=== PATIENT | female | born 1945 | race Caucasian/White ===

== ENCOUNTER 2016-06-25 06:26 | Day surgery (SDC) | payer OTHER ==
[2016-06-20 10:28] VITALS: BMI 27.9
[2016-06-24 10:00] VITALS: Ht 154.9 cm; Wt 75.0 kg
[2016-06-25] VITALS (17 sets, daily range): BP systolic 133–151; BP diastolic 56–69; PULSE 60–64; RESP 11–22
[~2016-06-25] VITALS: Ht 154.9 cm; Wt 75.0 kg
[~2016-06-25 06:26] MED LIST: APR50 PO; ASPI325T4 PO; CALC667T PO; GABA300C16 PO; HYDR-3011 PO; LISI-313 PO; METO-429 PO; PANT40TA4 PO
[2016-06-25] MEDS ORDERED: HYDR100T7 PO (07:37)
[2016-06-25] MEDS ORDERED: NPH SQ (07:38)
[2016-06-25] MEDS ORDERED: LISI40TA9 PO (07:39)
[2016-06-25] MEDS ORDERED: ERGO500037 PO (07:40)
[2016-06-25] MEDS ORDERED: DIPH25CA6 PO (07:41)
[2016-06-25] MEDS ORDERED: INSULIN REGULAR, HUMAN 100 UNIT/1 ML 3ML VIAL SC ONE ×2 (08:16→09:33)
[2016-06-25] MEDS ORDERED: HEPARIN 1000 UNITS/ML 10 ML INJ ONE (08:18)
[2016-06-25] MEDS ORDERED: LIDOCAINE 1% (STERILE-PAK) 30 ML INJ ONE (08:18)
[2016-06-25] MEDS ORDERED: GLUCAGON 1 MG INJ IM PRN (08:30)
[2016-06-25] MEDS ORDERED: GLUCOSE GEL 15 GRAM TUBE BUCCAL PRN (08:30)
[2016-06-25] MEDS ORDERED: GLUCOSE GEL 15 GRAM TUBE PO PRN ×2 (08:30)
[2016-06-25] MEDS ORDERED: DEXTROSE 50% 50 ML SYRINGE IV PRN (08:30)
[2016-06-25] MEDS ORDERED: MIDAZOLAM 1 MG/ML 2 ML INJ IV PRN (11:00)
[2016-06-25] MEDS ORDERED: MEPERIDINE 25 MG INJ IV PRN (11:00)
[2016-06-25] MEDS ORDERED: METOCLOPRAMIDE 10 MG INJ IV PRN (11:00)
[2016-06-25] MEDS ORDERED: MIDAZOLAM 1 MG/ML 2 ML INJ ONE (11:00)
[2016-06-25] MEDS ORDERED: FENTAnyl 50 MCG/ML VIAL ONE (11:00)
[2016-06-25] MEDS ORDERED: PROPOFOL 0 ML ONE (11:00)
[2016-06-25] MEDS ORDERED: ONDANSETRON 4 MG INJ IV PRN (11:00)
[2016-06-25] MEDS ORDERED: FENTAnyl 50 MCG/ML VIAL IV PRN ×2 (11:00)
[2016-06-25] MEDS ORDERED: DIPHENHYDRAMINE 50 MG INJ IV PRN (11:00)
[2016-06-25] MEDS ORDERED: CEFAZOLIN 1 GM INJ ONE (11:16)
[2016-06-25] MEDS ORDERED: hydrALAzine 20 MG INJ ONE (11:22)
[2016-06-25] MEDS ORDERED: THROMBIN 5000 UNIT VIAL ONE (12:10)
[2016-06-25] MEDS ORDERED: GELATIN SIZE 100 SPONGE ONE (12:10)
[2016-06-25] MEDS: DEXTROSE 50% 50 ML SYRINGE IV PRN ×2 (12:43→13:18)
[2016-06-25] MEDS ORDERED: HYDROCODONE/APAP (5/325) TAB PO ONE (15:00)
--- NOTE | 2016-06-25 21:44 | OPR ---
DATE OF OPERATION: PREOPERATIVE DIAGNOSIS: Renal failure. POSTOPERATIVE DIAGNOSIS: Renal failure. OPERATION PERFORMED: Right upper extremity arteriovenous fistula placement. SURGEON: Gurinder St MD ANESTHESIA: Local plus IV sedation. CONSENT: Risks, benefits, complications, alternative therapies explained to the patient and the [facility] vahid, consent obtained. OPERATIVE TECHNIQUE: The patient was placed in supine position, prepped and draped in usual sterile fashion, 1% lidocaine was used throughout the operation for local anesthesia. A time-out was shi d, antibiotics were given and I started. I made a 4 cm incision distal to the antecubital fossa. Incision was taken down to the subcutaneous tissue which was then opened using electrocautery. The brachial artery was identified and I could not identify the good basilic or cephalic vein; however, the brachial vein which was about 2.5 mm wa s identified. Vesseloops were passed around it. The brachial vein was transected distally and anas tomosed to the brachial artery in an end-to-side fashion after giving the patient 5000 units of IV h eparin. The anastomosis was done in an in end-to-side fashion using 7-0 Prolene in continuous sutur e technique. The wound was then irrigated and closed in 2 layers of 3-0 Vicryl suture in running berumen bcuticular skin closure. The patient tolerated the procedure well. Dictated By: GURINDER RUSSELL/DENIZ Conf#: [id number] DID#: [id number]
== END 2016-06-25 15:20 | disposition home or self-care (01) ==
LOC: SDS 06:26
PROVIDERS: ATTEND Thoracic Surgery (Cardiothoracic Vascular Surgery)
DX: I12.0 Hypertensive chronic kidney disease with stage 5 chronic kidney disease or end stage renal disease (principal); N18.6 End stage renal disease; E11.9 Type 2 diabetes mellitus without complications; E78.5 Hyperlipidemia, unspecified; Z95.0 Presence of cardiac pacemaker
CPT/HCPCS: 36830; 82962; 84132; J0360; J0690; J1644; J1815; J2250; J3010; Z7512; Z7610; C1725

== ENCOUNTER 2016-11-25 18:11 | Inpatient (IN) | payer BC, OTHER ==
[~2016-11-25] VITALS: Ht 152.4 cm; Wt 65.1 kg
[~2016-11-25 18:11] MED LIST changes: -APR50 PO; +DIPH25CA6 PO; +ERGO500037 PO; -GABA300C16 PO; -HYDR-3011 PO; +HYDR100T7 PO; -LISI-313 PO; +LISI40TA9 PO; +NPH SQ
[2016-11-25 18:25] VITALS: Ht 152.4 cm; Wt 65.1 kg
[2016-11-25 20:12] LABS: ADD SCAN DIFF NO
[2016-11-25 20:28] LABS: INR 1.05; PROTIME 13.7 Sec (12.2-14.2); PT RATIO 1.1
[2016-11-25 20:29] LABS: PARTIAL THROMBOPLASTIN TIME 30.8 Sec (25.0-35.0)
[2016-11-25 20:32] LABS: ABNORMAL IP MESSAGE 1; HEMATOCRIT 25.9 % (37.0-47.0); HEMOGLOBIN 9.2 g/dl (12.0-16.0); MEAN CORPUSCULAR HEMOGLOBIN 35.8 pg (29.0-33.0); MEAN CORPUSCULAR HGB CONC 35.5 g/dl (32.0-37.0); MEAN CORPUSCULAR VOLUME 100.8 fl (82.0-101.0); MEAN PLATELET VOLUME 10.6 fl (7.4-10.4); PLATELET COUNT 261 10^3/UL (140-415); RED BLOOD COUNT 2.57 10^6/ul (4.20-5.40); RED CELL DISTRIBUTION WIDTH 16.2 % (11.5-14.5); WHITE BLOOD COUNT 13.4 10^3/ul (4.8-10.8)
[2016-11-25] MEDS ORDERED: ASPI-664 PO (20:32)
[2016-11-25] MEDS ORDERED: CALC667C PO (20:33)
[2016-11-25] MEDS ORDERED: METO-448 PO (20:34)
[2016-11-25] MEDS ORDERED: NEPH PO (20:35)
[2016-11-25] MEDS ORDERED: NPH SQ (20:37)
--- NOTE | 2016-11-25 20:54 | ERA ---
ER Documentation Chief Complaint Date/Time DATE: 11/25/16 TIME: 20:51 Chief Complaint R av fistula not working; pt from HD HPI This is a 71-year-old female who presents to the emergency room for evaluation of her AV fistula. This patient had a right upper extremity AV fistula done by Dr. Chacko on June 26, 2016. The patient does have a Port-A-Cath in the right anterior chest wall as well. She states that to 2 weeks ago to try to access her fistula was not working. She states that she feels it is cloudy. She states that she did call her vascular surgeon who presented to the emergency room for evaluation. Patient is denying fevers associated with this and denies any numbness or tingling in the hand distal to the fistula site. ROS All systems reviewed and are negative except as per history of present illness. Medications Home Meds Reported Medications Insulin Human Nph (Novolin-N) 100 Units/Ml Susp, 10 UNIT SQ BID 11/25/16 Multivit/Ca Carb/B Cmplx/Fa* (Lakia-Rashaun*) 1 Tab Tab, 1 TAB PO DAILY, TAB 11/25/16 Metoprolol Tartrate* (Lopressor*) 25 Mg Tab, 25 MG PO BID, #60 TAB 11/25/16 Calcium Acetate* (Calcium Acetate*) 667 Mg Capsule, 2001 MG PO WITH MEALS, #90 CAP 11/25/16 Aspirin* (Aspirin* EC) 81 Mg Tablet.dr, 81 MG PO DAILY, TAB 11/25/16 Lisinopril* (Lisinopril*) 40 Mg Tablet, 40 MG PO DAILY, #30 TAB 06/25/16 Hydralazine Hcl* (Hydralazine Hcl*) 100 Mg Tablet, 100 MG PO Q8, #90 TAB 06/25/16 Pantoprazole* (Pantoprazole*) 40 Mg Tablet.dr, 40 MG PO DAILY, TAB 04/26/16 Discontinued Reported Medications Diphenhydramine Hcl* (Diphenhydramine Hcl*) 25 Mg Capsule, 25 MG PO Q6 Y for ITCHING, CAP 06/25/16 Ergocalciferol (Vitamin D2) (VITAMIN D2) 50,000 Unit Capsule, 13353 UNIT PO Q7, CAP 06/25/16 Insulin Human Nph (Novolin-N) 100 Units/Ml Susp, 6 SQ BID 06/25/16 Calcium Acetate (Calcium Acetate) 667 Mg Tablet, 667 MG PO WITH MEALS, #30 TAB 04/26/16 Metoprolol Tartrate* (Lopressor*) 50 Mg Tab, 50 MG PO BID, #60 TAB 04/26/16 Aspirin* (Aspirin*) 325 Mg Tablet, 325 MG PO DAILY, TAB 04/26/16 Allergies Allergies: Coded Allergies: No Known Allergy (Unverified , 11/25/16) PMhx/Soc History of Surgery: Yes (pacemaker placement, permacath r chest, R big toe amputation) Anesthesia Reaction: No Hx Neurological Disorder: No Hx Respiratory Disorders: No Hx Cardiac Disorders: Yes (htn, high cholestrerol) Hx Psychiatric Problems: No Hx Miscellaneous Medical Probl: No Hx Alcohol Use: No Hx Substance Use: No Hx Tobacco Use: No Smoking Status: Never smoker Physical Exam Vitals Vital Signs Date Time Temp Pulse Resp B/P Pulse Ox O2 Delivery O2 Flow Rate FiO2 11/25/16 19:50 Nasal Cannula 2 11/25/16 18:25 98.5 66 20 166/70 95 Physical Exam INITIAL VITAL SIGNS: Reviewed by me GENERAL: The patient is well developed and appropriate for usual state of health in no apparent distress HEENT: Pupils equal, round, and reactive to light. EOMI. There is no scleral icterus. NECK: C-spine is soft and supple, there is no meningismus. There is no cervical lymphadenopathy. LUNGS: Clear to auscultation bilaterally. There are no rales, wheezes or rhonchi. HEART: Regular rate and rhythm, no murmurs, clicks, rubs or gallops. ABDOMEN: Soft, non-tender, non-distended. There are bowel sounds in all four quadrants. No rebound or guarding. EXTREMITIES: Right upper extremity AV fistula, no palpable thrill, there is no peripheral cyanosis or edema. No focal swelling or erythema. NEUROLOGICAL: The patient moves all four extremities with 5/5 strength. Cranial nerves II - XII are intact. Normal gait. Alert and oriented SKIN: Port-A-Cath in anterior chest wall, there is no apparent rash or petechiae. HEME/LYMPHATIC: There is no evidence of excessive bruising or lymphedema. PSYCHIATRIC: The patient does not appear anxious or depressed. Result Diagram: 11/25/161999 Results 24 hrs Laboratory Tests Test 11/25/16 20:00 White Blood Count 13.410^3/ul Red Blood Count 2.5710^6/ul Hemoglobin 9.2g/dl Hematocrit 25.9% Mean Corpuscular Volume 100.8fl Mean Corpuscular Hemoglobin 35.8pg Mean Corpuscular Hemoglobin Concent 35.5g/dl Red Cell Distribution Width 16.2% Platelet Count 41372^3/UL Mean Platelet Volume 10.6fl Prothrombin Time 13.7Sec Prothrombin Time Ratio 1.1 INR International Normalized Ratio 1.05 Activated Partial Thromboplast Time 30.8Sec Procedures/MDM EKG: Rate/Rhythm: [Normal Sinus Rhythm] QRS, ST, T-waves: [No changes consistent w/ acute ischemia] Impression: [No evidence of ischemia or arrhythmia] Chest X-ray 1V Interpreted by me: Soft Tissue: No acute abnormalities Bones: No acute abnormalities Mediastinum/Cardiac Silhouette/Lungs: [No acute abnormalities] This 71-year-old female presents to the ER for evaluation of an AV fistula malfunction. When I evaluated this patient I did note there was no thrill in the AV fistula. She did have an arterial ultrasound which did confirm thrombosis of the AV fistula. This patient will be placed in for admission at this time for evaluation by vascular surgeon, Dr. Chacko for evaluation of clot. She does go to dialysis Friday, Friday and Friday and did receive her dialysis today through her permacath in the anterior chest wall. This patient is hemodynamically stable at this time, and nontoxic appearing. She will be placed on the [facility] floor under the care of her primary care physician Dr. lazar Departure Diagnosis: Primary Impression: AV fistula thrombosis Additional Impressions: Complication of vascular access for dialysis End stage renal disease CHANO BLANCO DO Nov 25, 2016 20:54
[2016-11-25] MEDS ORDERED: ACETAMINOPHEN 325 MG TAB PO PRN (21:00)
[2016-11-25] MEDS ORDERED: ONDANSETRON 4 MG INJ IV PRN (21:00)
[2016-11-25 21:16] LABS: EOSINOPHILS # 2.9 10^3/ul (0.0-0.5); LYMPHOCYTES # 1.9 10^3/ul (0.8-2.9); MONOCYTE # 0.9 10^3/ul (0.3-0.9); NEUTROPHIL # 7.6 10^3/ul (1.6-7.5)
--- NOTE | 2016-11-25 21:54 | RADRPT ---
PROCEDURE: XR Chest. CLINICAL INDICATION: Chest pain. TECHNIQUE: Portable AP view of the chest was obtained. COMPARISON: 04/26/2016 FINDINGS: The cardiomediastinal silhouette remains mildly enlarged. Dual chamber left subclavian approach car diac pacemaker is again noted in good position as is a right sided approach dialysis catheter. No e vidence of acute infiltrates, mild stable basilar dominant interstitial changes are chronic in appea monique. There is no evidence for pleural effusion, pneumothorax or pulmonary vascular congestion. T he osseous structures are intact with no evidence for acute abnormality. RPTAT:HJJR IMPRESSION: Stable cardiac silhouette enlargement, cardiac pacemaker and dialysis catheter with mild chronic and basilar dominant interstitial changes but no evidence for acute intrathoracic pathology. Physician Vinicius Date Time Electronically viewed and signed by Physician Vinicius on 11/25/2016 21:53 JR/
[2016-11-25 22:21] LABS: CREATININE 3.93 mg/dl (0.44-1.00); POTASSIUM 4.3 mmol/L (3.5-5.1)
[2016-11-25 22:32] LABS: TROPONIN-I 0.016 ng/ml (0.00-0.12)
--- NOTE | 2016-11-25 22:37 | RADRPT ---
PROCEDURE: US right upper extremity arterial duplex. CLINICAL INDICATION: Peripheral vascular disease, pain and edema. TECHNIQUE: Multiple sonographic images of the right upper extremity arterial system was obtained u tilizing grayscale, color-flow and doppler imaging with augmentation. The images were reviewed on a PACS workstation. COMPARISON: None. FINDINGS: There is biphasic flow within the right brachial artery and flow demonstrated within the graft anast omosis. There is a right forearm graft with monophasic flow demonstrated within the proximal segment . No flow is demonstrated within the mid to distal forearm graft. IMPRESSION: Thrombosed right forearm graft. .Wilver Perdomo MD, MD Date Time Electronically viewed and signed by .Wilver Perdomo MD, MD on 11/25/2016 22:37 .T/
[2016-11-25] MEDS ORDERED: ZOLPIDEM 5 MG TAB PO PRN (23:30)
[2016-11-25 23:45] VITALS: BP 165/76; PULSE 72; RESP 18
[2016-11-26] VITALS (7 sets, daily range): BP systolic 148–189; BP diastolic 67–86; PULSE 61–64; RESP 18–19
[2016-11-26 01:32] LABS: CK-MB 0.67 ng/ml (0.0-2.4); TROPONIN-I 0.021 ng/ml (0.00-0.12)
[2016-11-26] MEDS: ACCU-CHEK XX SCH (02:00)
[2016-11-26] MEDS ORDERED: ACCU-CHEK XX SCH (02:00)
[2016-11-26] MEDS: PANTOPRAZOLE (EC) 40 MG TAB PO SCH (06:15)
[2016-11-26 06:55] LABS: ADD SCAN DIFF NO
[2016-11-26 07:21] LABS: ABNORMAL IP MESSAGE 1; BASOPHIL # 0.1 10^3/ul (0.0-0.1); BASOPHILS % 0.5 % (0.0-2.0); EOSINOPHILS # 2.8 10^3/ul (0.0-0.5); HEMATOCRIT 25.4 % (37.0-47.0); HEMOGLOBIN 8.8 g/dl (12.0-16.0); LYMPHOCYTES # 1.7 10^3/ul (0.8-2.9); LYMPHOCYTES % 15.4 % (15.0-51.0); MEAN CORPUSCULAR HEMOGLOBIN 34.9 pg (29.0-33.0); MEAN CORPUSCULAR HGB CONC 34.6 g/dl (32.0-37.0); MEAN CORPUSCULAR VOLUME 100.8 fl (82.0-101.0); MEAN PLATELET VOLUME 10.7 fl (7.4-10.4); MONOCYTE # 0.9 10^3/ul (0.3-0.9); MONOCYTES % 8.8 % (0.0-11.0); NEUTROPHIL # 5.3 10^3/ul (1.6-7.5); NEUTROPHILS % 49.1 % (39.0-77.0); PLATELET COUNT 264 10^3/UL (140-415); RED BLOOD COUNT 2.52 10^6/ul (4.20-5.40); RED CELL DISTRIBUTION WIDTH 15.2 % (11.5-14.5); WHITE BLOOD COUNT 10.7 10^3/ul (4.8-10.8)
[2016-11-26 07:26] LABS: CALCIUM 8.6 mg/dl (8.4-10.2); CREATININE 4.8 mg/dl (0.44-1.00); POTASSIUM 4.6 mmol/L (3.5-5.1)
[2016-11-26 07:36] LABS: CK-MB 0.67 ng/ml (0.0-2.4); TROPONIN-I 0.025 ng/ml (0.00-0.12)
[2016-11-26] MEDS: CALCIUM ACETATE 667 MG CAP PO SCH ×3 (07:52→17:17)
[2016-11-26] MEDS: INSULIN ASPART [NOVOLOG] 3 ML PEN SC SCH ×7 (07:56→21:00)
[2016-11-26] MEDS: MULTIVIT/CA CARB/B CMPLX/FA TAB PO SCH (08:47)
[2016-11-26] MEDS: METOPROLOL 25 MG TAB PO SCH ×2 (08:48→21:12)
[2016-11-26] MEDS: LISINOPRIL 20 MG TAB PO SCH (08:51)
[2016-11-26] MEDS: ASPIRIN (EC) 81 MG TAB PO SCH (08:52)
--- NOTE | 2016-11-26 11:34 | HP ---
Date/Time of Note Date/Time of Note DATE: 11/26/16 TIME: 11:24 Assessment/Plan VTE Prophylaxis VTE Prophylaxis Intervention: SCD's Lines/Catheters [facility] Peripheral IV Urinary Cath still in place: No Assessment/Plan Assessment/Plan -Right upper extremity AV fistula thrombosis, Dr. St is asked to see patient in vascular surgery consultation. -End-stage renal disease, continue hemodialysis via right chest Erik catheter. -Diabetes mellitus, continue Lantus and NovoLog. -Hypertension, resume patient's home blood pressure medication. -Permanent pacemaker Further recommendations based on clinical course. Plan of care was discussed with Dr. Betancur. HPI/ROS Admit Date/Time Admit Date/Time Nov 25, 2016 at 20:50 Hx of Present Illness The patient is 71-year-old female with diabetes, hypertension, hemodialysis dependent end-stage renal disease. 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 The patient has a right AV fistula which was done by Dr. St on June 2016. About 2 weeks ago they tried to access the fistula and was not able to, and patient was sent to the emergency room by vascular surgeon. Patient is a right upper chest Erik catheter. Patient also has a left chest pacemaker. Patient underwent ultrasound of the fistula with notion of thrombosis. Patient had her last hemodialysis on Friday yesterday. Patient denies any fever, chills , denies any nausea, vomiting, diarrhea, denies any shortness of breath. Patient will be admitted for further evaluation and management. ROS 12 point review of systems is negative unless mentioned in HPI PMH/Family/Social Past Medical History Medical History: diabetes, hypertension, renal disease Past Surgical History Status post permanent pacemaker, status post left big toe amputation many years ago. Family History Significant Family History: no pertinent family hx Social History Alcohol Use: none Smoking Status: Never smoker Drug Use: none Exam/Review of Systems Vital Signs Vitals Vital Signs Date Time Temp Pulse Resp B/P Pulse Ox O2 Delivery O2 Flow Rate FiO2 11/26/16 08:17 98.5 64 18 97 11/25/16 23:45 Room Air 11/25/16 19:50 2 Intake and Output 11/25/16 11/25/16 11/26/16 15:00 23:00 07:00 Intake Total 150 ml Balance 150 ml Exam Constitutional: alert, oriented Psych: no complaints Head: normocephalic Eyes: nl conjunctiva ENMT: nl external ears & nose Neck: non-tender, supple Respiratory: normal air movement Cardiovascular: nl pulses, other (PPM) Gastrointestinal: non-tender, soft Extremities: normal pulses, other (Status post left big toe amputation) Neurological: nl mental status Skin: nl turgor Labs Result Diagram: 11/26/1661911/26/16619 Medications Medications Current Medications Metoprolol Tartrate (Lopressor) 25 mg BID PO Last administered on 11/26/16 08: 48; Admin Dose 25 MG; Start 11/26/16 at 09:00 Lisinopril (Zestril) 40 mg DAILY PO Last administered on 11/26/16 08:51; Admin Dose 40 MG; Start 11/26/16 at 09:00 Pantoprazole (Protonix Tab) 40 mg DAILY@06 PO Last administered on 11/26/16 06 :15; Admin Dose 40 MG; Start 11/26/16 at 06:00 Hydralazine HCl (Apresoline) 100 mg Q8 PO Last administered on 11/26/16 06:18 ; Admin Dose 100 MG; Start 11/26/16 at 06:00 Aspirin (Halfprin) 81 mg DAILY PO Last administered on 11/26/16 08:52; Admin Dose 81 MG; Start 11/26/16 at 09:00 Multivit/Ca Carb/ B Cmplx/FA/Prenat (Lakia-Rashaun) 1 tab DAILY PO Last administered on 11/26/16 08:47; Admin Dose 1 TAB; Start 11/26/16 at 09:00 Acetaminophen (Tylenol Tab) 650 mg Q4H PRN PO PAIN AND OR ELEVATED TEMP; Start 11/25/16 at 23:30 Zolpidem Tartrate (Ambien) 5 mg HS PRN PO INSOMNIA; Start 11/25/16 at 23:30 Clonidine (Catapres) 0.1 mg Q4H PRN GTB hypertension; Start 11/25/16 at 23:30 Diagnostic Test (Pha) (Accu-Chek) 1 02 XX ; Start 11/26/16 at 02:00 TRACY WAGNER Nov 26, 2016 11:34
--- NOTE | 2016-11-26 18:29 | CONS ---
Date/Time of Note Date/Time of Note DATE: 11/26/16 TIME: 18:26 Assessment/Plan Assessment/Plan Chief Complaint/Hosp Course Clotted right upper extremity AV fistula Problems: Additional Assessment/Plan Plan to proceed with a thrombectomy possible revision right upper extremity AV fistula Consultation Date/Type/Reason Admit Date/Time Nov 25, 2016 at 20:50 Date of Consultation: Nov 26, 2016 Reason for Consultation Clotted AV fistula Hx of Present Illness This is a 71-year-old female currently on dialysis. Permacath patient has a fistula in the right upper extremity which is dysfunctional has not been used for the past 2 weeks. patient is on dialysis. temporary catheter ENT: no complaints Respiratory: no complaints Cardiovascular: no complaints Gastrointestinal: no complaints Genitourinary: no complaints Musculoskeletal: no complaints Skin: no complaints Psychological: no complaints Past Medical History Medical History: coronary artery disease, diabetes, hypertension, renal disease Social History Alcohol Use: none Smoking Status: Never smoker Drug Use: none Exam/Review of Systems Vital Signs Vitals Vital Signs Date Time Temp Pulse Resp B/P Pulse Ox O2 Delivery O2 Flow Rate FiO2 11/26/16 14:03 98.2 64 18 148/67 97 Room Air 11/25/16 19:50 2 Intake and Output 11/25/16 11/25/16 11/26/16 15:00 23:00 07:00 Intake Total 150 ml Balance 150 ml Exam Eyes: EOMI, PERRL, nl conjunctiva, nl lids, nl sclera ENMT: nl external ears & nose, nl lips & teeth, nl nasal mucosa & septum Neck: non-tender, supple Respiratory: clear to auscultation, normal air movement Cardiovascular: nl pulses, regular rate and rhythm Gastrointestinal: nl liver, spleen, non-tender, soft Results Result Diagram: 11/26/16 0620 11/26/16 0620 Results 24 hrs Laboratory Tests Test 11/25/16 20:00 11/25/16 21:20 11/26/16 00:47 11/26/16 06:20 White Blood Count 13.4 #H 10.7 # Red Blood Count 2.57 #L 2.52 L Hemoglobin 9.2 #L 8.8 L Hematocrit 25.9 #L 25.4 L Mean Corpuscular Volume 100.8 100.8 Mean Corpuscular Hemoglobin 35.8 H 34.9 H Mean Corpuscular Hemoglobin Concent 35.5 34.6 Red Cell Distribution Width 16.2 H 15.2 H Platelet Count 261 264 Mean Platelet Volume 10.6 H 10.7 H Neutrophils % 57.0 49.1 Lymphocytes % 14.0 L 15.4 Monocytes % 7.0 8.8 Eosinophils % 22.0 H 26.0 H Neutrophils # 7.6 H 5.3 Lymphocytes # 1.9 1.7 Monocytes # 0.9 0.9 Eosinophils # 2.9 H 2.8 H Prothrombin Time 13.7 Prothrombin Time Ratio 1.1 INR International Normalized Ratio 1.05 Activated Partial Thromboplast Time 30.8 Sodium Level 139 137 Potassium Level 4.3 4.6 Chloride Level 95 L 97 Carbon Dioxide Level 29 27 Anion Gap 19 H 18 H Blood Urea Nitrogen 27 H 42 #H Creatinine 3.93 H 4.80 H Glucose Level 278 H 321 H Calcium Level 9.0 8.6 Troponin I 0.016 0.021 0.025 Creatine Kinase 43 23 Creatine Kinase Index 1.6 2.9 Creatinine Kinase MB (Mass) 0.67 0.67 Basophils % 0.5 Nucleated Red Blood Cells % 0.0 Basophils # 0.1 Nucleated Red Blood Cells # 0.0 Hemoglobin A1c 9.3 H Test 11/26/16 07:51 11/26/16 11:52 11/26/16 17:18 Bedside Glucose 328 H 105 153 Medications Medications Current Medications Metoprolol Tartrate (Lopressor) 25 mg BID PO Last administered on 11/26/16 08: 48; Admin Dose 25 MG; Start 11/26/16 at 09:00 Lisinopril (Zestril) 40 mg DAILY PO Last administered on 11/26/16 08:51; Admin Dose 40 MG; Start 11/26/16 at 09:00 Pantoprazole (Protonix Tab) 40 mg DAILY@06 PO Last administered on 11/26/16 06 :15; Admin Dose 40 MG; Start 11/26/16 at 06:00 Hydralazine HCl (Apresoline) 100 mg Q8 PO Last administered on 11/26/16 14:01 ; Admin Dose 100 MG; Start 11/26/16 at 06:00 Aspirin (Halfprin) 81 mg DAILY PO Last administered on 11/26/16 08:52; Admin Dose 81 MG; Start 11/26/16 at 09:00 Multivit/Ca Carb/ B Cmplx/FA/Prenat (Lakia-Rashaun) 1 tab DAILY PO Last administered on 11/26/16t 08:47; Admin Dose 1 TAB; Start 11/26/16 at 09:00 Acetaminophen (Tylenol Tab) 650 mg Q4H PRN PO PAIN AND OR ELEVATED TEMP; Start 11/25/16 at 23:30 Zolpidem Tartrate (Ambien) 5 mg HS PRN PO INSOMNIA; Start 11/25/16 at 23:30 Clonidine (Catapres) 0.1 mg Q4H PRN GTB hypertension; Start 11/25/16 at 23:30 Diagnostic Test (Pha) (Accu-Chek) 1 ea 02 XX ; Start 11/26/16 at 02:00 REBECCA CARSON MD Nov 26, 2016 18:29
[2016-11-27] VITALS (17 sets, daily range): BP systolic 110–201; BP diastolic 52–88; PULSE 60–80; RESP 17–20
[2016-11-27] MEDS: ACCU-CHEK XX SCH (02:00)
[2016-11-27] MEDS: ACETAMINOPHEN 325 MG TAB PO PRN (02:41)
[2016-11-27 05:53] LABS: ADD SCAN DIFF NO
[2016-11-27] MEDS: PANTOPRAZOLE (EC) 40 MG TAB PO SCH (06:00)
[2016-11-27 07:00] LABS: ABNORMAL IP MESSAGE 1; BASOPHIL # 0.1 10^3/ul (0.0-0.1); BASOPHILS % 0.7 % (0.0-2.0); EOSINOPHILS # 2.7 10^3/ul (0.0-0.5); HEMOGLOBIN 9.1 g/dl (12.0-16.0); LYMPHOCYTES # 1.9 10^3/ul (0.8-2.9); LYMPHOCYTES % 15.7 % (15.0-51.0); MEAN CORPUSCULAR HEMOGLOBIN 30.8 pg (29.0-33.0); MEAN CORPUSCULAR HGB CONC 31.7 g/dl (32.0-37.0); MEAN CORPUSCULAR VOLUME 97.3 fl (82.0-101.0); MEAN PLATELET VOLUME 10.8 fl (7.4-10.4); MONOCYTES % 8.3 % (0.0-11.0); NEUTROPHIL # 6.5 10^3/ul (1.6-7.5); PLATELET COUNT 282 10^3/UL (140-415); RED BLOOD COUNT 2.95 10^6/ul (4.20-5.40); RED CELL DISTRIBUTION WIDTH 15.2 % (11.5-14.5); WHITE BLOOD COUNT 12.2 10^3/ul (4.8-10.8)
[2016-11-27 07:13] LABS: HEMATOCRIT 28.7 % (37.0-47.0)
[2016-11-27 07:19] LABS: CALCIUM 8.9 mg/dl (8.4-10.2); CREATININE 7.01 mg/dl (0.44-1.00)
[2016-11-27] MEDS: CALCIUM ACETATE 667 MG CAP PO SCH ×3 (07:35→17:24)
[2016-11-27 07:49] LABS: POTASSIUM 5.2 mmol/L (3.5-5.1)
[2016-11-27] MEDS: INSULIN ASPART [NOVOLOG] 3 ML PEN SC SCH ×7 (08:23→21:00)
[2016-11-27] MEDS: ASPIRIN (EC) 81 MG TAB PO SCH (09:00)
[2016-11-27] MEDS: MULTIVIT/CA CARB/B CMPLX/FA TAB PO SCH (09:00)
[2016-11-27] MEDS: LISINOPRIL 20 MG TAB PO SCH (13:24)
[2016-11-27] MEDS: METOPROLOL 25 MG TAB PO SCH ×2 (13:25→22:12)
[2016-11-27] MEDS: DEXTROSE 5%-0.45% NACL 1,000 ML IV SCH (13:27)
--- NOTE | 2016-11-27 13:28 | PN ---
Date/Time of Note Date/Time of Note DATE: 11/27/16 TIME: 13:20 Assessment/Plan VTE Prophylaxis VTE Prophylaxis Intervention: SCD's Lines/Catheters [facility] Peripheral IV Urinary Cath still in place: No Assessment/Plan Chief Complaint/Hosp Course Patient status post hemodialysis today in the morning, currently n.p.o. for possible thrombectomy and AV fistula revision today, since patient is diabetic we will start gentle IV hydration with dextrose, continue to monitor blood sugar. Patient denies any fever chills, looks comfortable. Assessment/Plan -Right upper extremity AV fistula thrombosis, Dr. St is following in vascular surgery consultation. Plan for possible thrombectomy and AV fistula revision today. -End-stage renal disease, continue hemodialysis via right chest Erik catheter. Dr. Green is following in nephrology consultation. -Diabetes mellitus, hemoglobin A1c is 9.3, continue Lantus and NovoLog. -Hypertension, resume patient's home blood pressure medication. -Permanent pacemaker Further recommendations based on clinical course. Plan of care was discussed with Dr. Betancur. Problems: Exam/Review of Systems Vital Signs Vitals Vital Signs Date Time Temp Pulse Resp B/P Pulse Ox O2 Delivery O2 Flow Rate FiO2 11/27/16 12:14 60 19 126/58 97 11/27/16 08:41 97.0 11/26/16 14:03 Room Air 11/25/16 19:50 2 Intake and Output 11/26/16 11/26/16 11/27/16 15:00 23:00 07:00 Intake Total 920 ml 240 ml Balance 920 ml 240 ml Results Result Diagram: 11/27/16 0501 11/27/16 0500 Results 24 hrs Laboratory Tests Test 11/26/16 17:18 11/26/16 21:05 11/27/16 05:00 11/27/16 05:01 Bedside Glucose 153 146 Sodium Level 140 Potassium Level 5.2 H Chloride Level 94 L Carbon Dioxide Level 23 Anion Gap 28 #H Blood Urea Nitrogen 66 H Creatinine 7.01 #H Glucose Level 300 H Calcium Level 8.9 White Blood Count 12.2 H Red Blood Count 2.95 L Hemoglobin 9.1 L Hematocrit 28.7 L Mean Corpuscular Volume 97.3 Mean Corpuscular Hemoglobin 30.8 Mean Corpuscular Hemoglobin Concent 31.7 L Red Cell Distribution Width 15.2 H Platelet Count 282 Mean Platelet Volume 10.8 H Neutrophils % 53.0 Lymphocytes % 15.7 Monocytes % 8.3 Eosinophils % 22.0 H Basophils % 0.7 Nucleated Red Blood Cells % 0.0 Neutrophils # 6.5 Lymphocytes # 1.9 Monocytes # 1.0 H Eosinophils # 2.7 H Basophils # 0.1 Nucleated Red Blood Cells # 0.0 Test 11/27/16 08:05 11/27/16 11:31 Bedside Glucose 319 H 165 Medications Medications Current Medications Metoprolol Tartrate (Lopressor) 25 mg BID PO Last administered on 11/26/16 21: 12; Admin Dose 25 MG; Start 11/26/16 at 09:00 Lisinopril (Zestril) 40 mg DAILY PO Last administered on 11/26/16 08:51; Admin Dose 40 MG; Start 11/26/16 at 09:00 Pantoprazole (Protonix Tab) 40 mg DAILY@06 PO Last administered on 11/26/16 06 :15; Admin Dose 40 MG; Start 11/26/16 at 06:00 Hydralazine HCl (Apresoline) 100 mg Q8 PO Last administered on 11/26/16 22:03 ; Admin Dose 100 MG; Start 11/26/16 at 06:00 Aspirin (Halfprin) 81 mg DAILY PO Last administered on 11/26/16 08:52; Admin Dose 81 MG; Start 11/26/16 at 09:00 Multivit/Ca Carb/ B Cmplx/FA/Prenat (Lakia-Rashaun) 1 tab DAILY PO Last administered on 11/26/16 08:47; Admin Dose 1 TAB; Start 11/26/16 at 09:00 Acetaminophen (Tylenol Tab) 650 mg Q4H PRN PO PAIN AND OR ELEVATED TEMP Last administered on 11/27/16 02:41; Admin Dose 650 MG; Start 11/25/16 at 23:30 Zolpidem Tartrate (Ambien) 5 mg HS PRN PO INSOMNIA; Start 11/25/16 at 23:30 Clonidine (Catapres) 0.1 mg Q4H PRN GTB hypertension Last administered on 02:40; Admin Dose 0.1 MG; Start 11/25/16 at 23:30 Diagnostic Test (Pha) (Accu-Chek) 1 ea 02 XX ; Start 11/26/16 at 02:00 TRACY WAGNER Nov 27, 2016 13:28
--- NOTE | 2016-11-27 13:56 | PN ---
Date/Time of Note Date/Time of Note DATE: 11/27/16 TIME: 13:55 Assessment/Plan Lines/Catheters IV Catheter Type (from Nrsg): Peripheral IV Sams in Place (from Nrsg): No Assessment/Plan Chief Complaint/Hosp Course Clotted right upper extremity AV fistula Patient with slight redness over the fistula on the right arm Also a slight leukocytosis Would monitor the erythema and the tenderness Surgery is on hold until erythema improves and her leukocytosis improves Problems: Subjective 24 Hr Interval Summary Constitutional: improved Pain Control: mild Exam/Review of Systems Vital Signs Vitals Vital Signs Date Time Temp Pulse Resp B/P Pulse Ox O2 Delivery O2 Flow Rate FiO2 11/27/16 12:14 60 19 126/58 97 11/27/16 08:41 97.0 11/26/16 14:03 Room Air 11/25/16 19:50 2 Intake and Output 11/26/16 11/26/16 11/27/16 15:00 23:00 07:00 Intake Total 920 ml 240 ml Balance 920 ml 240 ml Exam ENMT: mucosa pink and moist, nl external ears & nose, nl lips & teeth, nl nasal mucosa & septum Neck: non-tender, supple Respiratory: clear to auscultation, normal air movement Cardiovascular: nl pulses, regular rate and rhythm Results Result Diagram: 11/27/16 0501 11/27/16 0500 REBECCA CARSON MD Nov 27, 2016 13:56
[2016-11-27] MEDS ORDERED: GLUCAGON 1 MG INJ IM PRN (14:00)
[2016-11-27] MEDS ORDERED: DEXTROSE 50% 50 ML SYRINGE IV PRN ×2 (14:00)
[2016-11-27] MEDS ORDERED: GLUCOSE GEL 15 GRAM TUBE PO PRN ×2 (14:00)
[2016-11-27] MEDS ORDERED: GLUCOSE GEL 15 GRAM TUBE BUCCAL PRN (14:00)
--- NOTE | 2016-11-27 16:54 | QN ---
Documentation Comment pt seen and examined. h/p dictated MARIA ELENA CASTLE DO Nov 27, 2016 16:54
[2016-11-27] MEDS ORDERED: INSULIN GLARGINE [LANtus] 3 ML PEN SC SCH (20:00)
[2016-11-28] MEDS: ACETAMINOPHEN 325 MG TAB PO PRN ×2 (00:35→21:51)
[2016-11-28] MEDS: ACCU-CHEK XX SCH (02:00)
[2016-11-28 02:16] VITALS: BP 142/66; RESP 18
[2016-11-28 05:50] LABS: ADD SCAN DIFF NO
[2016-11-28 05:57] VITALS: BP 163/72; PULSE 60
[2016-11-28] MEDS: hydrALAzine 20 MG INJ IV PRN (05:57)
[2016-11-28] MEDS: PANTOPRAZOLE (EC) 40 MG TAB PO SCH (05:57)
[2016-11-28 06:58] LABS: CALCIUM 9.2 mg/dl (8.4-10.2); CREATININE 5.59 mg/dl (0.44-1.00); MAGNESIUM 2.2 mg/dl (1.7-2.5); POTASSIUM 3.9 mmol/L (3.5-5.1)
[2016-11-28] MEDS: INSULIN ASPART [NOVOLOG] 3 ML PEN SC SCH ×7 (07:35→21:58)
[2016-11-28] MEDS: CALCIUM ACETATE 667 MG CAP PO SCH ×3 (07:35→17:44)
[2016-11-28 07:59] LABS: BASOPHIL # 0.1 10^3/ul (0.0-0.1); BASOPHILS % 0.7 % (0.0-2.0); EOSINOPHILS # 1.9 10^3/ul (0.0-0.5); HEMATOCRIT 29.4 % (37.0-47.0); HEMOGLOBIN 9.2 g/dl (12.0-16.0); LYMPHOCYTES % 21.3 % (15.0-51.0); MEAN CORPUSCULAR HEMOGLOBIN 30.9 pg (29.0-33.0); MEAN CORPUSCULAR HGB CONC 31.3 g/dl (32.0-37.0); MEAN CORPUSCULAR VOLUME 98.7 fl (82.0-101.0); MEAN PLATELET VOLUME 10.7 fl (7.4-10.4); MONOCYTES % 10.3 % (0.0-11.0); NEUTROPHIL # 4.4 10^3/ul (1.6-7.5); NEUTROPHILS % 47.5 % (39.0-77.0); PLATELET COUNT 279 10^3/UL (140-415); RED BLOOD COUNT 2.98 10^6/ul (4.20-5.40); RED CELL DISTRIBUTION WIDTH 15.3 % (11.5-14.5); WHITE BLOOD COUNT 9.4 10^3/ul (4.8-10.8)
[2016-11-28] MEDS: MULTIVIT/CA CARB/B CMPLX/FA TAB PO SCH (08:18)
[2016-11-28] MEDS: ASPIRIN (EC) 81 MG TAB PO SCH (08:18)
[2016-11-28 08:21] VITALS: BP 145/65; RESP 20
[2016-11-28] MEDS: DEXTROSE 5%-0.45% NACL 1,000 ML IV SCH (08:21)
[2016-11-28] MEDS: METOPROLOL 25 MG TAB PO SCH ×2 (08:21→21:52)
[2016-11-28] MEDS: LISINOPRIL 20 MG TAB PO SCH (08:21)
--- NOTE | 2016-11-28 12:10 | CONS ---
DATE OF ADMISSION: 11/25/2016 DATE OF CONSULTATION: REASON FOR CONSULTATION: Endstage renal disease. HISTORY OF PRESENT ILLNESS: This is a 71-year-old female with a past medical history of endstage renal disease on dialysis Friday, Friday, Friday with access through a right AV fistula. Primary sports leadership instructor is Dr. Mina Hale at [place]. Patient also has a history of diabetes and hypertension, who presents to [facility] for evaluation of a thrombosed AV fistula. Patient was seen by Dr St approximately 2 weeks ago who has tried to access the underlying fistula but was unable to. Patient had a twin catheter placed. Patient subsequently had an ultrasound which was noted to have thrombosis of the fistula and was recommended to come to [facility] to undergo revision and possible declotting. In terms of my evaluation of the patient, she is currently stable. Denies any fevers, chills, nausea, and vomiting. No shortness of breath. PAST MEDICAL HISTORY: History of diabetes, hypertension, endstage renal disease, mineral bone disorder. PAST SURGICAL HISTORY: Status post pacemaker placement, status post left big toe amputation, status post AV fistula placement. FAMILY HISTORY: Noncontributory. SOCIAL HISTORY: Does not drink, smoke, or do drugs. MEDICATION: The patient's medications have been reviewed. REVIEW OF SYSTEMS: A 14-point review of systems was conducted. Pertinent positives stated in HPI, otherwise negative. PHYSICAL EXAM: VITALS: Blood pressure 148/67, respirations 18, pulse 64, temperature 98.2. HEENT: Head is normocephalic. Pupils are reactive to light. NECK: Supple. HEART: Regular rate. LUNGS: Diminished breath sounds at the bases, otherwise clear. ABDOMEN: Soft. Nontender to palpation. No rebound or guarding. EXTREMITIES: No clubbing, cyanosis. No edema. DERMATOLOGIC: Clear of rashes. MUSCULOSKELETAL: . NEUROLOGIC: No focal deficits. LABORATORY DATA: Sodium 137, potassium 1.6, chloride 97. BUN 42, creatinine 12.8. White count 10.7, hemoglobin , hematocrit 25.4. Platelet count is 264. Chest x-ray shows no interstitial changes, no evidence of pathology. Positive pacemaker noted. Ultrasound of the right AV graft shows positive thrombus. ASSESSMENT AND PLAN: This is a 71-year-old female who presents with problem: 1. Endstage renal disease. The patient is on dialysis Friday, Friday, Friday. Plan for hemodialysis tomorrow. Will dialyze 3 hours potassium bath, calcium 2.5. 2. Access. The patient has a right upper extremity arteriovenous fistula with underlying thrombosis. Patient will be evaluated by Dr St for declotting. Will monitor closely. 3. Anemia. Monitor hemoglobin and hematocrit levels. Continue to treatment with hemodialysis. 4. Mineral bone disorder. Monitor calcium and phosphorous levels. 5. Hypertension. Continue current blood pressure regimen. 6. Diabetes. Continue Accu-Cheks and sliding scale. Thank you, Dr Betancur, for this interesting consult. It will be a pleasure to follow the patient with you throughout the hospital course. Dictated By: Ty Green DO /[email or web address]/garfield /Document#: [id number]
[2016-11-28 14:00] VITALS: BP 179/74; RESP 18
--- NOTE | 2016-11-28 19:11 | PN ---
Date/Time of Note Date/Time of Note DATE: 11/28/16 TIME: 19:05 Assessment/Plan VTE Prophylaxis VTE Prophylaxis Intervention: other Lines/Catheters [facility] Saline Lock Urinary Cath still in place: No Assessment/Plan Assessment/Plan - Patient status post hemodialysis today in the morning, was n.p.o. for possible thrombectomy and AV fistula revision today, since patient is diabetic we will start gentle IV hydration with dextrose, continue to monitor blood sugar. - surgery cancelled by Dr St . possible schedule as an outpatient procedure. - possible dc home after HD am -Right upper extremity AV fistula thrombosis, Dr. St is following in vascular surgery consultation. Plan for possible thrombectomy and AV fistula revision today. -End-stage renal disease, continue hemodialysis via right chest Erik catheter. Dr. Green is following in nephrology consultation. -Diabetes mellitus, hemoglobin A1c is 9.3, continue Lantus and NovoLog. -Hypertension, resume patient's home blood pressure medication. -Permanent pacemaker Further recommendations based on clinical course. Plan of care was discussed with Dr. Betancur. Subjective 24 Hr Interval Summary Free Text/Dictation Patient c/o right chest discomfort from Perma cath during dialysis. No chest pain reported at present. Daughter at bed side and would like to take her mother home post HD tomorrow.As daughter is concerned about patients chest pain during HD.Dw Dr Betancur/staff/patient/daughter.N Respiratory: no complaints Cardiovascular: no complaints Gastrointestinal: no complaints Genitourinary: no complaints Musculoskeletal: no complaints Exam/Review of Systems Vital Signs Vitals Vital Signs Date Time Temp Pulse Resp B/P Pulse Ox O2 Delivery O2 Flow Rate FiO2 11/28/16 14:00 98.1 60 18 179/74 96 11/26/16 14:03 Room Air 11/25/16 19:50 2 Intake and Output 11/27/16 11/27/16 11/28/16 15:00 23:00 07:00 Intake Total 500 ml 750 ml 240 ml Output Total 2500 ml Balance -2000 ml 750 ml 240 ml Exam Constitutional: alert, well developed Respiratory: clear to auscultation, normal air movement Cardiovascular: nl pulses, regular rate and rhythm Gastrointestinal: non-tender, soft Musculoskeletal: nl extremities to inspection Extremities: normal pulses Neurological: nl mental status, nl speech Results Result Diagram: 11/28/16 0522 11/28/16 0522 Results 24 hrs Laboratory Tests Test 11/27/16 22:06 11/28/16 05:22 11/28/16 07:42 11/28/16 12:23 Bedside Glucose 131 230 H 232 H White Blood Count 9.4 # Red Blood Count 2.98 L Hemoglobin 9.2 L Hematocrit 29.4 L Mean Corpuscular Volume 98.7 Mean Corpuscular Hemoglobin 30.9 Mean Corpuscular Hemoglobin Concent 31.3 L Red Cell Distribution Width 15.3 H Platelet Count 279 Mean Platelet Volume 10.7 H Neutrophils % 47.5 Lymphocytes % 21.3 Monocytes % 10.3 Eosinophils % 20.0 H Basophils % 0.7 Nucleated Red Blood Cells % 0.0 Neutrophils # 4.4 Lymphocytes # 2.0 Monocytes # 1.0 H Eosinophils # 1.9 H Basophils # 0.1 Nucleated Red Blood Cells # 0.0 Sodium Level 147 H Potassium Level 3.9 Chloride Level 98 Carbon Dioxide Level 30 Anion Gap 23 H Blood Urea Nitrogen 45 #H Creatinine 5.59 H Glucose Level 163 # Calcium Level 9.2 Phosphorus Level 6.0 H Magnesium Level 2.2 Test 11/28/16 17:43 Bedside Glucose 236 H Medications Medications Current Medications Metoprolol Tartrate (Lopressor) 25 mg BID PO Last administered on 11/27/16 22: 12; Admin Dose 25 MG; Start 11/26/16 at 09:00 Lisinopril (Zestril) 40 mg DAILY PO Last administered on 11/27/16 13:24; Admin Dose 40 MG; Start 11/26/16 at 09:00 Pantoprazole (Protonix Tab) 40 mg DAILY@06 PO Last administered on 11/26/16 06 :15; Admin Dose 40 MG; Start 11/26/16 at 06:00 Hydralazine HCl (Apresoline) 100 mg Q8 PO Last administered on 11/28/16 14:36 ; Admin Dose 100 MG; Start 11/26/16 at 06:00 Aspirin (Halfprin) 81 mg DAILY PO Last administered on 11/26/16 08:52; Admin Dose 81 MG; Start 11/26/16 at 09:00 Multivit/Ca Carb/ B Cmplx/FA/Prenat (Lakia-Rashaun) 1 tab DAILY PO Last administered on 11/26/16 08:47; Admin Dose 1 TAB; Start 11/26/16 at 09:00 Acetaminophen (Tylenol Tab) 650 mg Q4H PRN PO PAIN AND OR ELEVATED TEMP Last administered on 11/28/16 00:35; Admin Dose 650 MG; Start 11/25/16 at 23:30 Zolpidem Tartrate (Ambien) 5 mg HS PRN PO INSOMNIA; Start 11/25/16 at 23:30 Clonidine (Catapres) 0.1 mg Q4H PRN GTB hypertension Last administered on 17:24; Admin Dose 0.1 MG; Start 11/25/16 at 23:30 Diagnostic Test (Pha) 1 ea 1 ea 02 XX ; Start 11/26/16 at 02:00 Dextrose/Sodium Chloride (D5-1/2ns) 1,000 ml @ 50 mls/hr Q20H IV Last administered on 11/27/16 13:27; Admin Dose 50 MLS/HR; Start 11/27/16 at 13:30 Insulin Glargine (Lantus) 15 unit DAILY@20 SC Last administered on 11/27/16 22 :09; Admin Dose 15 UNIT; Start 11/27/16 at 20:00 Miscellaneous Information 1 ea NOTE XX ; Start 11/27/16 at 14:00 Glucose (Glutose) 15 gm Q15M PRN PO DECREASED GLUCOSE; Start 11/27/16 at 14:00 Glucose (Glutose) 22.5 gm Q15M PRN PO DECREASED GLUCOSE; Start 11/27/16 at 14: 00 Dextrose (D50w Syringe) 25 ml Q15M PRN IV DECREASED GLUCOSE; Start 11/27/16 at 14:00 Dextrose (D50w Syringe) 50 ml Q15M PRN IV DECREASED GLUCOSE; Start 11/27/16 at 14:00 Glucagon (Glucagen) 1 mg Q15M PRN IM DECREASED GLUCOSE; Start 11/27/16 at 14:00 Glucose (Glutose) 15 gm Q15M PRN BUCCAL DECREASED GLUCOSE; Start 11/27/16 at 14 :00 Hydralazine HCl (Apresoline) 10 mg Q4H PRN IV ELEVATED BLOOD PRESSURE Last administered on 11/28/16 05:57; Admin Dose 10 MG; Start 11/27/16 at 18:30 PAULETTE MERAZ Nov 28, 2016 19:11
[2016-11-28 20:11] VITALS: BP 138/62; RESP 19
[2016-11-28] MEDS: INSULIN GLARGINE [LANtus] 3 ML PEN SC SCH (21:57)
[2016-11-28 22:01] VITALS: BP 165/71; PULSE 62
[2016-11-29] VITALS (19 sets, daily range): BP systolic 140–198; BP diastolic 49–79; PULSE 60–62; RESP 14–20
[2016-11-29] MEDS: ACCU-CHEK XX SCH (02:00)
[2016-11-29] MEDS: DEXTROSE 5%-0.45% NACL 1,000 ML IV SCH ×2 (05:25→12:44)
[2016-11-29] MEDS: PANTOPRAZOLE (EC) 40 MG TAB PO SCH (05:27)
[2016-11-29 05:41] LABS: ADD SCAN DIFF NO
[2016-11-29 05:42] LABS: BASOPHIL # 0.1 10^3/ul (0.0-0.1); BASOPHILS % 0.9 % (0.0-2.0); EOSINOPHILS # 1.7 10^3/ul (0.0-0.5); EOSINOPHILS % 20.1 % (0.0-7.0); HEMOGLOBIN 9.2 g/dl (12.0-16.0); LYMPHOCYTES # 1.7 10^3/ul (0.8-2.9); LYMPHOCYTES % 19.7 % (15.0-51.0); MEAN PLATELET VOLUME 10.5 fl (7.4-10.4); MONOCYTE # 0.8 10^3/ul (0.3-0.9); MONOCYTES % 8.9 % (0.0-11.0); NEUTROPHIL # 4.2 10^3/ul (1.6-7.5); NEUTROPHILS % 50.2 % (39.0-77.0); PLATELET COUNT 261 10^3/UL (140-415); RED CELL DISTRIBUTION WIDTH 18.1 % (11.5-14.5); WHITE BLOOD COUNT 8.5 10^3/ul (4.8-10.8)
[2016-11-29 06:31] LABS: HEMATOCRIT 18.9 % (37.0-47.0); MEAN CORPUSCULAR HEMOGLOBIN 51.1 pg (29.0-33.0); MEAN CORPUSCULAR HGB CONC 48.7 g/dl (32.0-37.0)
[2016-11-29 07:00] LABS: CALCIUM 8.9 mg/dl (8.4-10.2); CREATININE 7.3 mg/dl (0.44-1.00); MAGNESIUM 2.3 mg/dl (1.7-2.5); PHOSPHORUS 6.4 mg/dl (2.5-4.9); POTASSIUM 4.3 mmol/L (3.5-5.1)
[2016-11-29] MEDS ORDERED: PROPOFOL 200 MG INJ ONE (07:00)
[2016-11-29] MEDS ORDERED: DEXAMETHASONE 4 MG/ML 1 ML INJ ONE (07:00)
[2016-11-29] MEDS: CALCIUM ACETATE 667 MG CAP PO SCH ×3 (07:35→16:05)
[2016-11-29] MEDS: LISINOPRIL 20 MG TAB PO SCH ×2 (08:33→08:41)
[2016-11-29] MEDS: MULTIVIT/CA CARB/B CMPLX/FA TAB PO SCH (08:33)
[2016-11-29] MEDS: METOPROLOL 25 MG TAB PO SCH ×2 (08:42→23:17)
[2016-11-29] MEDS: INSULIN ASPART [NOVOLOG] 3 ML PEN SC SCH ×7 (08:45→21:00)
[2016-11-29] MEDS: ASPIRIN (EC) 81 MG TAB PO SCH (09:00)
[2016-11-29] MEDS ORDERED: EPOETIN 10000 UNITS/1 ML INJ (ESRD) SC ONE (13:00)
--- NOTE | 2016-11-29 14:31 | PN ---
Date/Time of Note Date/Time of Note DATE: 11/29/16 TIME: 14:29 Assessment/Plan VTE Prophylaxis VTE Prophylaxis Intervention: SCD's Lines/Catheters IV Catheter Type (from [facility]): Saline Lock Urinary Cath still in place: No Assessment/Plan Chief Complaint/Hosp Course Patient is currently n.p.o. pending vascular procedure, complaints of being hungry, denies any fever nausea vomiting. Assessment/Plan -Right upper extremity AV fistula thrombosis, Dr. St is following in vascular surgery consultation. Plan for possible thrombectomy and AV fistula revision. -End-stage renal disease, continue hemodialysis via right chest Erik catheter. Dr. Green is following in nephrology consultation. -Diabetes mellitus, hemoglobin A1c is 9.3, continue Lantus and NovoLog. -Hypertension, resume patient's home blood pressure medication. -Permanent pacemaker Further recommendations based on clinical course. Plan of care was discussed with Dr. Betancur. Problems: Exam/Review of Systems Vital Signs Vitals Vital Signs Date Time Temp Pulse Resp B/P Pulse Ox O2 Delivery O2 Flow Rate FiO2 11/29/16 14:10 97.7 60 18 165/75 94 11/26/16 14:03 Room Air 11/25/16 19:50 2 Intake and Output 11/28/16 11/28/16 11/29/16 14:59 22:59 06:59 Intake Total 600 ml 450 ml Balance 600 ml 450 ml Exam Constitutional: alert, oriented Respiratory: normal air movement Cardiovascular: nl pulses, other (PPM) Gastrointestinal: non-tender, soft Extremities: normal pulses, other (Status post left big toe amputation) Neurological: nl mental status Results Result Diagram: 11/29/16 0514 11/29/16 0514 Results 24 hrs Laboratory Tests Test 11/28/16 17:43 11/28/16 21:54 11/29/16 03:08 11/29/16 05:14 Bedside Glucose 236 H 228 H 117 White Blood Count 8.5 Red Blood Count 1.80 #L Hemoglobin 9.2 L Hematocrit 18.9 #L Mean Corpuscular Volume 105.0 H Mean Corpuscular Hemoglobin 51.1 #H Mean Corpuscular Hemoglobin Concent 48.7 #H Red Cell Distribution Width 18.1 H Platelet Count 261 Mean Platelet Volume 10.5 H Neutrophils % 50.2 Lymphocytes % 19.7 Monocytes % 8.9 Eosinophils % 20.1 H Basophils % 0.9 Neutrophils # 4.2 Lymphocytes # 1.7 Monocytes # 0.8 Eosinophils # 1.7 H Basophils # 0.1 Nucleated Red Blood Cells # 0.0 Sodium Level 146 H Potassium Level 4.3 Chloride Level 100 Carbon Dioxide Level 24 Anion Gap 26 H Blood Urea Nitrogen 71 H Creatinine 7.30 H Glucose Level 104 # Calcium Level 8.9 Phosphorus Level 6.4 H Magnesium Level 2.3 Test 11/29/16 08:08 11/29/16 11:41 Bedside Glucose 153 89 Medications Medications Current Medications Metoprolol Tartrate (Lopressor) 25 mg BID PO Last administered on 11/29/16 08: 42; Admin Dose 25 MG; Start 11/26/16 at 09:00 Lisinopril (Zestril) 40 mg DAILY PO Last administered on 11/29/16 08:41; Admin Dose 40 MG; Start 11/26/16 at 09:00 Pantoprazole (Protonix Tab) 40 mg DAILY@06 PO Last administered on 11/29/16 05 :27; Admin Dose 40 MG; Start 11/26/16 at 06:00 Hydralazine HCl (Apresoline) 100 mg Q8 PO Last administered on 11/29/16 05:27 ; Admin Dose 100 MG; Start 11/26/16 at 06:00 Aspirin (Halfprin) 81 mg DAILY PO Last administered on 11/26/16 08:52; Admin Dose 81 MG; Start 11/26/16 at 09:00 Multivit/Ca Carb/ B Cmplx/FA/Prenat (Lakia-Rashaun) 1 tab DAILY PO Last administered on 11/26/16 08:47; Admin Dose 1 TAB; Start 11/26/16 at 09:00 Acetaminophen (Tylenol Tab) 650 mg Q4H PRN PO PAIN AND OR ELEVATED TEMP Last administered on 11/28/16 21:51; Admin Dose 650 MG; Start 11/25/16 at 23:30 Zolpidem Tartrate (Ambien) 5 mg HS PRN PO INSOMNIA; Start 11/25/16 at 23:30 Clonidine (Catapres) 0.1 mg Q4H PRN GTB hypertension Last administered on 17:24; Admin Dose 0.1 MG; Start 11/25/16 at 23:30 Diagnostic Test (Pha) 1 ea 1 ea 02 XX ; Start 11/26/16 at 02:00 Dextrose/Sodium Chloride (D5-1/2ns) 1,000 ml @ 50 mls/hr Q20H IV Last administered on 11/29/16 12:44; Admin Dose 50 MLS/HR; Start 11/27/16 at 13:30 Miscellaneous Information 1 ea NOTE XX ; Start 11/27/16 at 14:00 Glucose (Glutose) 15 gm Q15M PRN PO DECREASED GLUCOSE; Start 11/27/16 at 14:00 Glucose (Glutose) 22.5 gm Q15M PRN PO DECREASED GLUCOSE; Start 11/27/16 at 14: 00 Dextrose (D50w Syringe) 25 ml Q15M PRN IV DECREASED GLUCOSE; Start 11/27/16 at 14:00 Dextrose (D50w Syringe) 50 ml Q15M PRN IV DECREASED GLUCOSE; Start 11/27/16 at 14:00 Glucagon (Glucagen) 1 mg Q15M PRN IM DECREASED GLUCOSE; Start 11/27/16 at 14:00 Glucose (Glutose) 15 gm Q15M PRN BUCCAL DECREASED GLUCOSE; Start 11/27/16 at 14 :00 Hydralazine HCl (Apresoline) 10 mg Q4H PRN IV ELEVATED BLOOD PRESSURE Last administered on 11/28/16 05:57; Admin Dose 10 MG; Start 11/27/16 at 18:30 Insulin Glargine (Lantus) 18 unit DAILY@20 SC Last administered on 11/28/16 21 :57; Admin Dose 18 UNIT; Start 11/28/16 at 20:30 TRACY WAGNER Nov 29, 2016 14:31
[2016-11-29] MEDS ORDERED: LIDOCAINE 1% (STERILE-PAK) 30 ML INJ ONE (20:39)
[2016-11-29] MEDS ORDERED: IOHEXOL 300MG/ML 30 ML BTL ONE (20:39)
[2016-11-29] MEDS ORDERED: HEPARIN 1000 UNITS/ML 10 ML INJ ONE (20:51)
[2016-11-29] MEDS ORDERED: MIDAZOLAM 1 MG/ML 2 ML INJ ONE (21:01)
[2016-11-29] MEDS ORDERED: FENTAnyl 50 MCG/ML VIAL ONE (21:04)
[2016-11-29] MEDS ORDERED: ONDANSETRON 4 MG INJ ONE (21:26)
[2016-11-29] MEDS ORDERED: METOCLOPRAMIDE 10 MG INJ ONE (21:26)
--- NOTE | 2016-11-29 21:40 | OPR ---
Date/Time of Note Date/Time of Note DATE: 11/29/16 TIME: 21:38 Operative Report Procedure Date: Nov 29, 2016 Preoperative Diagnosis Renal failure Postoperative Diagnosis Renal failure Operation Performed Right internal jugular vein tunneled him to hemodialysis catheter placement Superior venacavogram Interpretation supervision of the superior venacavogram Surgeon: REBECCA CARSON MD Anesthesia: MAC Estimated Blood Loss: minimal Specimens None Grafts/Implants None Tubes/Drains None Complications: None Pt Condition Post Procedure: stable Disposition: PACU Operative\Procedure Findings Patient was placed supine position prepped and draped in usual sterile fashion the original right internal jugular vein tunneled hemodialysis catheter was removed in its entirety after releasing the cuff from the surrounding tissues subsequently access was gained the right internal jugular vein guidewire was advanced without any difficulty subcutaneous tissues dilated 19 cm tunneled hematemesis catheter was brought into subcutaneous tunnel advanced into the right internal jugular vein to superior vena cava secured to skin using 2-0 nylon sutures . Superior venacavogram was done which showed no evidence of any extravasation The next site and exit site was closed using a single 3-0 Vicryl suture in interrupted fashion both ports of the catheter were aspirated and injected using heparin saline solution patient tolerated procedure well REBECCA CARSON MD Nov 29, 2016 21:40
[2016-11-29] MEDS ORDERED: ONDANSETRON 4 MG INJ IV PRN (22:00)
[2016-11-29] MEDS ORDERED: FENTAnyl 50 MCG/ML VIAL IV PRN (22:00)
[2016-11-29] MEDS: INSULIN GLARGINE [LANtus] 3 ML PEN SC SCH (23:18)
[2016-11-30] VITALS (12 sets, daily range): BP systolic 104–179; BP diastolic 54–84; PULSE 62–69; RESP 16–20
[2016-11-30] MEDS: ACCU-CHEK XX SCH (02:00)
[2016-11-30] MEDS: PANTOPRAZOLE (EC) 40 MG TAB PO SCH (05:33)
[2016-11-30 06:27] LABS: CALCIUM 8.6 mg/dl (8.4-10.2); CREATININE 8.72 mg/dl (0.44-1.00); POTASSIUM 5.1 mmol/L (3.5-5.1)
[2016-11-30] MEDS: CALCIUM ACETATE 667 MG CAP PO SCH ×3 (08:33→17:02)
[2016-11-30] MEDS: INSULIN ASPART [NOVOLOG] 3 ML PEN SC SCH ×6 (08:34→17:10)
[2016-11-30] MEDS: METOPROLOL 25 MG TAB PO SCH ×2 (08:35→20:44)
[2016-11-30] MEDS: ASPIRIN (EC) 81 MG TAB PO SCH (08:35)
[2016-11-30] MEDS: MULTIVIT/CA CARB/B CMPLX/FA TAB PO SCH (08:38)
[2016-11-30] MEDS: LISINOPRIL 20 MG TAB PO SCH (08:38)
[2016-11-30 09:31] LABS: BASOPHIL # 0.1 10^3/ul (0.0-0.1); BASOPHILS % 0.8 % (0.0-2.0); EOSINOPHILS # 0.6 10^3/ul (0.0-0.5); EOSINOPHILS % 7.8 % (0.0-7.0); HEMATOCRIT 28.2 % (37.0-47.0); LYMPHOCYTES # 1.8 10^3/ul (0.8-2.9); MEAN CORPUSCULAR HEMOGLOBIN 31.3 pg (29.0-33.0); MEAN CORPUSCULAR HGB CONC 31.6 g/dl (32.0-37.0); MEAN CORPUSCULAR VOLUME 99.3 fl (82.0-101.0); MEAN PLATELET VOLUME 10.3 fl (7.4-10.4); MONOCYTE # 0.7 10^3/ul (0.3-0.9); MONOCYTES % 9.6 % (0.0-11.0); NEUTROPHIL # 4.1 10^3/ul (1.6-7.5); NEUTROPHILS % 56.5 % (39.0-77.0); PLATELET COUNT 280 10^3/UL (140-415); RED BLOOD COUNT 2.84 10^6/ul (4.20-5.40); RED CELL DISTRIBUTION WIDTH 15.7 % (11.5-14.5); WHITE BLOOD COUNT 7.2 10^3/ul (4.8-10.8)
[2016-11-30 09:34] LABS: HEMOGLOBIN 8.9 g/dl (12.0-16.0)
--- NOTE | 2016-11-30 10:29 | RADRPT ---
PROCEDURE: Intraoperative imaging of the chest with fluoroscopy. CLINICAL INDICATION: Line placement. Intraoperative. TECHNIQUE: A single frontal image of the chest was obtained in the operating room with an image in tensifier. No radiologist was in attendance. Fluoroscopy time is 3.4 seconds. COMPARISON: Chest radiograph dated 11/25/2016. FINDINGS: There is a left-sided dual lead permanent pacemaker and a right-sided tunneled dialysis catheter. IMPRESSION: 1. Intraoperative imaging of the chest. RPTAT: QQ .Prashanth Guevara MD, MD Date Time Electronically viewed and signed by .rPashanth Guevara MD, MD on 11/30/2016 10:28 .R/
--- NOTE | 2016-11-30 10:32 | PN ---
Date/Time of Note Date/Time of Note DATE: 11/30/16 TIME: 10:31 Assessment/Plan Lines/Catheters IV Catheter Type (from Nrsg): HD ACCESS Sams in Place (from Nrsg): No Assessment/Plan Chief Complaint/Hosp Course Clotted right upper extremity AV fistula Status post replacement of permacath With continue dialysis We will evaluate for AV fistula revision as an outpatient Problems: Subjective 24 Hr Interval Summary Constitutional: improved Pain Control: mild Exam/Review of Systems Vital Signs Vitals Vital Signs Date Time Temp Pulse Resp B/P Pulse Ox O2 Delivery O2 Flow Rate FiO2 11/30/16 10:00 62 11/30/16 08:20 160/74 11/30/16 07:30 19 11/30/16 02:00 97.9 99 11/29/16 22:37 Nasal Cannula 2.0 Intake and Output 11/29/16 11/29/16 11/30/16 15:00 23:00 07:00 Intake Total 500 ml 450 ml Balance 500 ml 450 ml Exam ENMT: mucosa pink and moist, nl external ears & nose, nl lips & teeth, nl nasal mucosa & septum Neck: non-tender, supple Respiratory: clear to auscultation, normal air movement Cardiovascular: nl pulses, regular rate and rhythm Gastrointestinal: nl liver, spleen, non-tender, soft Results Result Diagram: 11/30/16 0517 11/30/16516 REBECCA CARSON MD Nov 30, 2016 10:32
--- NOTE | 2016-11-30 16:56 | PDOCDIS ---
Discharge Instructions CONDITION Patient Condition: Stable HOME CARE INSTRUCTIONS: Diet Instructions: Special Diet: 1800 CALORIE, 2GM NA ACTIVITY: Activity Restrictions: Slowly Increase Activity Rest between Activity Avoid heavy lifting Do not operate Machinery Do not operate Power Tool Avoid Heavy Housework Bathing Restrictions: Sponge Bath FOLLOW UP/APPOINTMENTS Follow-up Plan FU with Primary MD X 1 WEEK FU with surgery as recommended. Call 911 or got to the nearest hospital if symptoms get worse. Plan of car dw dr Betancur/staff/patient PAULETTE MERAZ Nov 30, 2016 16:56
[2016-11-30] MEDS ORDERED: PANT40TA4 PO (17:06)
[2016-11-30] MEDS ORDERED: NOVO3I SC (17:06)
[2016-11-30] MEDS ORDERED: LANT3I SC (17:06)
[2016-11-30] MEDS: hydrALAzine 20 MG INJ IV PRN (19:40)
--- NOTE | 2016-12-02 08:34 | PN ---
DATE: SUBJECTIVE DATA: The patient is stable. She is scheduled for hemodialysis today. OBJECTIVE DATA: VITAL SIGNS: Blood pressure is 164/73, respirations 18, pulse 60, temperature 98.6. HEENT: Normocephalic. NECK: Supple. HEART: Regular rate. LUNGS: Diminished breath sounds at the base. ABDOMEN: Soft. No tenderness to palpation. No rebound or guarding. EXTREMITIES: Negative for clubbing or cyanosis. No edema. DERMATOLOGIC: Clear. No rashes. MUSCULOSKELETAL: No joint effusions. NEUROLOGIC: No change in exam. MEDICATIONS: The patient's medications have been reviewed. LABORATORY AND DIAGNOSTIC DATA: Laboratory data from 11/29 was reviewed. The patient had a sodium of 146. BUN of 71, creatinine 7.3. ASSESSMENT AND PLAN: 1. Endstage renal disease. Patient is on dialysis Friday, Friday, and Friday. The plan is for hemodialysis today. We will dialyze for 3 hours bath potassium 2.5. 2. Access. Patient has a right upper extremity fistula. Will be seen by outpatient Dr for thrombectomy. 3. Anemia. Monitor hemoglobin and hematocrit levels. 4. Mineral bone disorder. Will monitor calcium and phosphorous levels. 5. Hypertension. Continue on blood pressure regimen. 6. Diabetes. Continue current insulin regimen. 7. Mild hypernatremia. Encourage free water intake. Dictated By: Ty Green DO /zi/garfield /Document#: [id number]
--- NOTE | 2016-12-04 05:10 | PN ---
DATE: 11/28/2016 OBJECTIVE DATA: Objectively, the patient is stable. Hemodialysis yesterday tolerated well without complaint. The patient is pending a thrombectomy of a clotted AV fistula. No other events noted. SUBJECTIVE DATA: Vitals: Blood pressure 145/65. Respirations 20. Pulse 62. Temperature 98.1. HEENT head is normocephalic. Neck is supple. Heart is regular rate. Lungs show diminished breath sounds at the bases. Abdomen is soft, nontender to palpation. No rebound or guarding. Extremities are negative for clubbing, cyanosis, no edema. Dermatologically, no rashes. Musculoskeletal, no joint effusion. Neurologically, no change in exam. The patient's medication was reviewed. LABORATORY DATA: Sodium 147, 2.9, BUN 45, creatinine 5.59, white count 9.4, hematocrit 29.4 and platelet count is 279. ASSESSMENT AND PLAN: 1. End-stage renal disease. Patient is on dialysis Friday, Friday, Friday. Plan for dialysis tomorrow. 2. Access patient's clotted AV fistula. Waiting thrombectomy. 3. Anemia due H and H levels. Continue Epogen with hemodialysis. 4. Mineral bone disorder. Continue to monitor calcium and phosphorus levels. Continue phos binders. 5. Hypertension. Continue her blood pressure regimen. 6. Diabetes. Continue Accu-Chek on a sliding scale. 7. Status post pacemaker. Dictated By: Ty Green DO /zi/megan /Document#: [id number]
--- NOTE | 2016-12-05 08:54 | PN ---
DATE: 11/27/2016 SUBJECTIVE DATA: The patient is stable with no acute events overnight. OBJECTIVE DATA: VITAL SIGNS: Blood pressure 160/71, respirations 18, pulse 61, temperature 97.9. HEENT: Head is normocephalic. NECK: Supple. HEART: Regular rate. LUNGS: Show diminished breath sounds at the base. ABDOMEN: Soft, nontender to palpation. No rebound or guarding. EXTREMITIES: Negative for clubbing and cyanosis, no edema. DERMATOLOGIC: No rashes. NEUROLOGIC: No focal deficits. MUSCULOSKELETAL: No joint effusions. MEDICATIONS: Have been reviewed. LABORATORY AND DIAGNOSTIC DATA: White count 12.2, hemoglobin 9.1, sodium 140, potassium 5.2, BUN 6, creatinine 7.0. ASSESSMENT AND PLAN: This is a 71-year-old female who presents with: 1. End-stage renal disease. The patient scheduled for hemodialysis today, will dialyze for 3 hours 2K bath, calcium 2.5. 2. Clotted right upper extremity arteriovenous fistula. The patient has been seen by vascular surgeon Gurinder St MD. Plan for declotting. 3. Anemia, monitor hemoglobin and hematocrit levels. Will give Epogen with hemodialysis. 4. Metabolic disorder. Will monitor calcium and phosphorus levels. 5. Hyperkalemia. The patient will be dialyzed on a 2 potassium bath. 6. Diabetes. Continue Accu-Chek and sliding scale. 7. Hypertension. Continue current blood pressure regimen. Continue ultrafiltration dialysis. 8. Status post pacemaker. Dictated By: Ty Green DO /zi/jono /Document#: [id number]
== END 2016-11-30 21:17 | disposition home or self-care (01) | DRG 314 ==
LOC: E/R 18:11 → PP2 20:50
PROVIDERS: ADMIT Internal Medicine; ATTEND Internal Medicine
PROC: 5A1D60Z (ICD-10-PCS; 2016-11-27)
PROC: 05PYX3Z Removal of Infusion Device from Upper Vein, External Approach (ICD-10-PCS; 2016-11-29)
PROC: 02HV33Z Insertion of Infusion Device into Superior Vena Cava, Percutaneous Approach (ICD-10-PCS; principal; 2016-11-29 18:30)
DX: T82.868A Thrombosis due to vascular prosthetic devices, implants and grafts, initial encounter (principal); N18.6 End stage renal disease; E87.0 Hyperosmolality and hypernatremia; E11.22 Type 2 diabetes mellitus with diabetic chronic kidney disease; I12.0 Hypertensive chronic kidney disease with stage 5 chronic kidney disease or end stage renal disease; E78.00 Pure hypercholesterolemia, unspecified; D64.9 Anemia, unspecified; E87.5 Hyperkalemia; I25.10 Atherosclerotic heart disease of native coronary artery without angina pectoris; Z89.411 Acquired absence of right great toe; Z79.4 Long term (current) use of insulin; Z99.2 Dependence on renal dialysis; Z79.82 Long term (current) use of aspirin; Z95.0 Presence of cardiac pacemaker; Y83.2 Surgical operation with anastomosis, bypass or graft as the cause of abnormal reaction of the patient, or of later complication, without mention of misadventure at the time of the procedure
CPT/HCPCS: 36415; 71010; 80048; 82550; 82553; 82962; 83036; 83735; 84100; 84484; 85025; 85610; 85730; 90935; 93005; 93931; C1752; J0360; J1100; J1644; J1815; J2250; J2405; J2765; J3010; J7042; Q4081; Q9967

== ENCOUNTER 2016-12-05 15:04 | Outpatient (CLI) | payer BC, OTHER ==
[~2016-12-05] VITALS: Ht 160 cm; Wt 80.0 kg
[~2016-12-05 15:04] MED LIST changes: +ASPI-664 PO; -ASPI325T4 PO; +CALC667C PO; -CALC667T PO; -DIPH25CA6 PO; -ERGO500037 PO; +LANT3I SC; -METO-429 PO; +METO-448 PO; +NEPH PO; +NOVO3I SC
[2016-12-05 15:15] VITALS: BP 170/70; PULSE 68; RESP 17; Ht 160 cm; Wt 80.0 kg
--- NOTE | 2016-12-05 16:27 | PN ---
Date/Time of Note Date/Time of Note DATE: 12/05/16 TIME: 16:19 Outpatient Progress Note Chief Complaint Malfunction of dialysis shunt/diabetes/hypertension/chronic renal failure HPI Malfunction of dialysis shunt/patient has a dialysis shunt on right arm, and it is nonfunctioning, patient was recently hospitalized and patient has permacath put on the right side of the chest wall, no fever chill, no bleeding or discharge, patient being dialyzed from permacath Diabetes/no pleuritic supple due to hypoglycemia, patient has impaired vision, patient unable to see much, Hypertension/no headache or dizziness at present, but patient does have off-and- on headache, and dizziness, and also has a blood pressure which is significantly elevated especially on dialysis today up to 180 190 systolic, Status post pacemaker/, no pain or tenderness, Chronic renal failure/no nausea vomiting, patient has no pruritus, on hemodialysis, Review of Systems Const: No Fever, no chills, no Wt. loss, no Fatigue, normal appetite, no diaphoresis. Eyes: No pain, no discharge, no redness, impaired vision in both eyes,, no foreign body. ENT: No pain, no bleeding, no congestion, no sore throat, no dysphagia, no discharge or rhinitis. Lymph: No adenopathy, no tender nodes, no lymphedema. Resp: No SOB, no cough, no sputum, no wheezing, no chest pain. CV: No chest pain, no palpitaions, no BOWMAN, no PND, no edema. Patient has right chest Erik catheter, GI: Normal appetite, no pain, no nausea, no vomiting, no diarrhea, no blood, no constipation. : No frequency, no urgency, no dysuria, no hematuria, no flank pain, no discharge, no bleeding. Musc: No back pain, no neck pain, no knee pain, no restricted ROM. Skin: No rash, no skin lesions, no erythema, no laceration, no bruising, no pruritus. Neuro: No ROSALES, occasional dizziness, no syncope, no seizure, no focal-weakness. Endo: No polyuria, no polydypsia, no dry-skin, no temp-intolerance. Psych: No hallucinations, no depression, no anxiety, no suicidal ideation. Ext: No edema, no pain, no ulcer, no weakness. Patient has right upper extremity AV fistula which is thrombosed, Physical Exam Vital Signs Date Time Temp Pulse Resp B/P Pulse Ox O2 Delivery O2 Flow Rate FiO2 12/05/16 15:15 98.3 68 17 170/70 98 Room Air General Appearance: A 71 year-old female who appears well-developed, well- nourished, in no acute distress. HEENT: Head normocephalic, atraumatic. Pupils equal, round, reactive to light and accommodate. Impaired vision both eyes, sclerae are no jaundice. Nasal turbinates pink without erythema or nasal discharge. Mucous membranes pink and moist without lesions. Oropharynx clear without any exudate or discharge. NECK: Supple. Trachea midline, No thyromegaly, No cervical lymphadenopathy, No mass, No carotid bruits, No JVD, Carotid pulses 2+ bilaterally. PULMONARY: Clear to auscultaion bilaterally, No retractions, Chest expansion symmetric bilaterally, no rales, no ronchi, no dulness on percussion. CARDIAC: Normal SI and S2, Regular rate and rythm, no murmur, gallop, or rub. GASTROINTESTINAL: Abdomen is soft, non-tender, Non Rigid, No distention, Positive bowel sounds x4 quadrants, Liver normal. SKIN: Warm, dry, no rash, no bruise, no echmosis. EXTREMITIES: Bilateral lower extremities no edema, patient has nonfunctioning AV fistula which is thrombosed in the right upper extremity, and has Erik catheter on the right side of the chest wall, no phlabitus, pulse palpable, no contracture. MUSCULOSKELETAL: Spine Normal, Non-tender, Normal range of motion, No swelling, no deformity, no clubbing, or cyanosis, the patient has no edema to bilateral lower extremities, dorsalis pedis pulses palpable bilaterally. NEUROLOGIC: The patient is awake, alert, oriented, responding to yes/no questions appropriately, moving all extremities, cranial nerve intact, normal strenght, normal power, normal coordination, normal gait. Allergies Coded Allergies: morphine (Verified Allergy, Intermediate, 11/26/16) diphenhydramine (Verified Adverse Reaction, Intermediate, 11/26/16) PMH Chronic renal failure/diabetes/hypertension/status post pacemaker Social Hx No smoking no drinking, Family Hx Noncontributory Assessment/Plan Impression Malfunction of AV fistula with thrombosis/diabetes/hypertension/chronic renal failure Plan Continue all medications supportive care, Patient encouraged to follow with the primary care physician, Patient encourage to follow with the ophthalmology, Patient encouraged to until the blood pressure, patient blood pressure significantly elevated, I will increase metoprolol 25 mg twice a day to metoprolol 50 mg twice a day, Medications Home Meds Active Scripts Insulin Aspart* (Novolog Insulin Pen*) 100 Unit/Ml Soln, 6 UNIT SC WITH MEALS for 30 Days Prov:PAULETTE MERAZ 11/30/16 Insulin Glargine* (Lantus*) 100 Unit/Ml Soln, 18 UNIT SC DAILY@20 for 30 Days Prov:PAULETTE MERAZ 11/30/16 Pantoprazole* (Pantoprazole*) 40 Mg Tablet., 40 MG PO DAILY@06 for 30 Days Prov:PAULETTE MERAZ 11/30/16 Reported Medications Insulin Human Nph (Novolin-N) 100 Units/Ml Susp, 10 UNIT SQ BID 11/25/16 Multivit/Ca Carb/B Cmplx/Fa* (Lakia-Rashaun*) 1 Tab Tab, 1 TAB PO DAILY, TAB 11/25/16 Metoprolol Tartrate* (Lopressor*) 25 Mg Tab, 25 MG PO BID, #60 TAB 11/25/16 Calcium Acetate* (Calcium Acetate*) 667 Mg Capsule, 2001 MG PO WITH MEALS, #90 CAP 11/25/16 Aspirin* (Aspirin* EC) 81 Mg Tablet.dr, 81 MG PO DAILY, TAB 11/25/16 Lisinopril* (Lisinopril*) 40 Mg Tablet, 40 MG PO DAILY, #30 TAB 06/25/16 Hydralazine Hcl* (Hydralazine Hcl*) 100 Mg Tablet, 100 MG PO Q8, #90 TAB 06/25/16 Pantoprazole* (Pantoprazole*) 40 Mg Tablet., 40 MG PO DAILY, TAB 04/26/16 BRYNN PORTILLO MD Dec 05, 2016 16:27
== END 2016-12-05 17:01 | disposition home or self-care (01) ==
LOC: DCC 15:04
PROVIDERS: ATTEND Internal Medicine
DX: T82.41XA Breakdown (mechanical) of vascular dialysis catheter, initial encounter (principal); Y84.1 Kidney dialysis as the cause of abnormal reaction of the patient, or of later complication, without mention of misadventure at the time of the procedure; I12.0 Hypertensive chronic kidney disease with stage 5 chronic kidney disease or end stage renal disease; N18.6 End stage renal disease; E11.9 Type 2 diabetes mellitus without complications; Z79.4 Long term (current) use of insulin; Z79.82 Long term (current) use of aspirin